=== PATIENT | male | born 1985 | race Caucasian/White ===

== ENCOUNTER 2018-01-21 19:34 | Emergency (ER) | payer BC ==
[2018-01-21 19:54] VITALS: BP 130/80
[2018-01-21] MEDS ORDERED: TETRACAINE HCL 0.5% OPH SOLN 0.6 ML DROPERETTE OU ONE (19:54)
--- NOTE | 2018-01-21 19:54 | ER Document Report ---
HPI - HPI Patient complains to provider of: Left eye irritation and pain Onset: Other - 8 days Quality of pain: Achy, Burning Pain Level: 4 Context: 33-year-old soft contact lens wear that kept him in for a month took them out because his left eye started to get irritated. Over the past 8 days it has been burning and irritated with watering no pus but there was some eyelid swelling and redness to the eye. He has not seen an eye doctor. No fever or chills. He has not used his contacts since Associated Symptoms: None Exacerbated by: Other - Closing his eye Relieved by: Other - Holding his eye open Similar symptoms previously: No - ROS ROS below otherwise negative: Yes Systems Reviewed and Negative: Yes All other systems reviewed and negative Past Medical History - General Information source: Patient - Social History Smoking Status: Unknown if Ever Smoked Lives with: Spouse/Significant other Family History: Hyperlipidemia, Hypertension Psychiatric Medical History: Reports: Hx Depression Surgical Hx: Negative - Immunizations Immunizations up to date: Yes Hx Diphtheria, Pertussis, Tetanus Vaccination: Yes - 12/17/13 Vertical Provider Document - CONSTITUTIONAL Agree With Documented VS: Yes Exam Limitations: No Limitations - INFECTION CONTROL TRAVEL OUTSIDE OF THE [place] IN LAST 30 DAYS: No - HEENT HEENT: Conjuctival Injection, PERRLA Notes: No adenopathy. 6:00 V-shaped corneal disruption rough surface superficial which is cloudy, most likely ulcer. Course - Re-evaluation Re-evalutation: 01/21/18 20:33 Consult several hours who states that the patient can wait Wednesday to see an director distribution. I advised the patient that he needs to come back to the emergency room if symptoms worsen. He will use the Besivance eyedrops and Acular for pain. He is unable to do the eye chart because he does not have corrective lenses but he can see my fingers when I hold them up between the right eye and the left eye. - Vital Signs Vital signs: Temp Pulse Resp BP Pulse Ox 98.8 F 56 L 16 130/80 H 99 01/21/18 19:53 01/21/18 19:53 01/21/18 19:53 01/21/18 19:53 01/21/18 19:53 Discharge - Discharge Clinical Impression: Corneal ulcer left eye Condition: Good Disposition: HOME, SELF-CARE Instructions: Ketorolac Tromethamine Eye Drops ([facility]), Eyedrop Use ([facility]), Ultram ([facility]) Additional Instructions: I am not sure if Dr. Falk's office is open on Wednesday please call and check and see if they are open. If they are closed you need to be seen by the director distribution on Wednesday. The ketorolac eyedrops is 1 drop in the left eye every 8 hours Besivance 1 drop every 8 hours for 7 days Do not use her contacts Do not patch her eye Prescriptions: Tramadol HCl [Ultram 50 mg Tablet] 50 mg PO ASDIR PRN #15 tablet PRN Reason: Referrals: SERAFIN YOUNGBLOOD MD [ACTIVE STAFF] - 01/24/18
[2018-01-21] MEDS ORDERED: BESIFLOXACIN HCL 0.6% OPH SUSP 5 ML BOTTLE OS ONE (20:24)
[2018-01-21] MEDS ORDERED: KETOROLAC TROMETHAMINE 0.45% 4 DROP/0.4 ML DROPERETTE OS ONE (20:33)
== END 2018-01-21 20:55 | disposition home or self-care (01) ==
LOC: ER 19:34
DX: H16.002 Unspecified corneal ulcer, left eye (principal); H57.12 Ocular pain, left eye; H02.846 Edema of left eye, unspecified eyelid
CPT/HCPCS: 99283